=== PATIENT | male | born 1975 | race Caucasian/White ===

== ENCOUNTER 2017-12-27 08:32 | Inpatient (IN) | payer OTHER ==
[~2017-12-27 08:32] MED LIST: CEFAZOLIN 2 GM/50 ML (PMX) 50 ML (FOR WT < 120 KG) IVPB; LACTATED RINGER'S 1,000 ML IV; SOD CHLORIDE 0.9% 1,000 ML IV
[2017-12-27] MEDS ORDERED: CEFAZOLIN 1 GM INJ ×2 (12:56→18:21)
[2017-12-27] MEDS ORDERED: ROCURONIUM 50 MG INJ (12:56)
[2017-12-27] MEDS ORDERED: PROPOFOL 20 ML (12:56)
[2017-12-27] MEDS ORDERED: MIDAZOLAM 1 MG/ML 2 ML INJ (12:56)
[2017-12-27] MEDS ORDERED: POLYMYXIN/BACITRACIN 1L IRRIG (13:39)
[2017-12-27] MEDS ORDERED: METOCLOPRAMIDE 10 MG INJ (14:37)
[2017-12-27] MEDS ORDERED: ACETAMINOPHEN 1000MG/100ML IV 100 ML (14:37)
[2017-12-27] MEDS ORDERED: ONDANSETRON 4 MG INJ (14:37)
[2017-12-27] MEDS ORDERED: KETOROLAC 30 MG INJ (14:38)
[2017-12-27] MEDS ORDERED: DEXAMETHASONE 4 MG/ML 1 ML INJ (14:38)
[2017-12-27] MEDS: THROMBIN 5000 UNIT VIAL (15:08)
[2017-12-27] MEDS: HEMOSTATIC MATRIX SYG ZFS (15:09)
[2017-12-27] MEDS: BUPIVACAINE 0.25%/EPI (SDV) 30 ML INJ INJ (15:09)
[2017-12-27] MEDS ORDERED: DIPHENHYDRAMINE 50 MG INJ IV (16:00)
[2017-12-27] MEDS ORDERED: LABETALOL HCL 20MG INJ IV (16:00)
[2017-12-27] MEDS ORDERED: hydrALAzine 20 MG INJ IV (16:00)
[2017-12-27] MEDS ORDERED: OXYCODONE/ACETAMINOPHEN (5/325) TAB PO ×2 (16:00)
[2017-12-27] MEDS ORDERED: EPHEDrine SULFATE 50 MG/5 ML SYG IV (16:00)
[2017-12-27] MEDS ORDERED: METOCLOPRAMIDE 10 MG INJ IV (16:00)
[2017-12-27] MEDS ORDERED: FENTAnyl 50 MCG/ML VIAL IV ×3 (16:00)
[2017-12-27] MEDS ORDERED: HYDROmorphONE (0.2 MG/ML) 10ML SYG IV ×2 (16:00)
[2017-12-27] MEDS ORDERED: TRIAMCINOLONE ACET 40 MG/ML INJ (17:58)
[2017-12-27] MEDS ORDERED: BETAMET NA PHOS/AC(6 MG/ML) 5ML INJ (18:01)
[2017-12-27] MEDS ORDERED: SUGAMMADEX SODIUM 200 MG/2 ML VIAL IV (18:56)
[2017-12-27] MEDS: HYDROmorphONE (0.2 MG/ML) 10ML SYG IV ×3 (19:23→19:39)
[2017-12-27] MEDS: MEPERIDINE 25 MG INJ IV (19:26)
[2017-12-27] MEDS: ONDANSETRON 4 MG INJ IV (19:26)
[2017-12-27] MEDS ORDERED: ACETAMINOPHEN 325 MG TAB PO (19:30)
[2017-12-27] MEDS ORDERED: PROCHLORPERAZINE 10 MG TAB PO (19:30)
[2017-12-27] MEDS ORDERED: HYDROCODONE/APAP (5/325) TAB PO (19:30)
[2017-12-27] MEDS ORDERED: NALOXONE (0.4 MG/ML) INJ IV (19:30)
[2017-12-27] MEDS ORDERED: NACL 0.9% 3 ML SYG IV (19:30)
[2017-12-27] MEDS ORDERED: HYDROmorphONE 0.2 MG/ML PCA IV (19:30)
[2017-12-27] MEDS ORDERED: ONDANSETRON 4 MG INJ IV (19:30)
[2017-12-27] MEDS: HYDROmorphONE 0.2 MG/ML PCA IV (20:20)
[2017-12-27] MEDS: DEXTROSE 5%-0.45% NACL 1,000 ML IV (21:14)
[2017-12-27] MEDS: CEFAZOLIN 1 GM/50 ML (PMX) 50 ML IVPB (23:58)
[2017-12-28] MEDS: DEXTROSE 5%-0.45% NACL 1,000 ML IV ×2 (05:12→15:12)
[2017-12-28] MEDS: CEFAZOLIN 1 GM/50 ML (PMX) 50 ML IVPB ×3 (05:24→17:37)
[2017-12-28] MEDS: HYDROCODONE/APAP (5/325) TAB PO ×3 (14:30→22:17)
[2017-12-29] MEDS: DEXTROSE 5%-0.45% NACL 1,000 ML IV ×3 (01:12→21:12)
[2017-12-29] MEDS: HYDROCODONE/APAP (5/325) TAB PO ×4 (05:35→18:37)
[2017-12-30] MEDS: HYDROCODONE/APAP (5/325) TAB PO ×2 (04:05→12:22)
[2017-12-30] MEDS: DEXTROSE 5%-0.45% NACL 1,000 ML IV (07:12)
[2017-12-30] MEDS: BISACODYL (EC) 5 MG TAB PO (12:21)
== END 2017-12-30 12:53 | disposition home or self-care (01) | DRG 460 ==
LOC: REC 08:32 → MS1 20:50
PROC: 0SG00AJ Fusion of Lumbar Vertebral Joint with Interbody Fusion Device, Posterior Approach, Anterior Column, Open Approach (ICD-10-PCS; principal; 2017-12-27 10:30)
PROC: 0SB20ZZ Excision of Lumbar Vertebral Disc, Open Approach (ICD-10-PCS; 2017-12-27 10:30)
DX: M51.16 Intervertebral disc disorders with radiculopathy, lumbar region (principal)
CPT/HCPCS: 72100; 97116; 97162; 97530